=== PATIENT | female | born 1955 | race Caucasian/White ===

== ENCOUNTER → 2016-12-15 | Day surgery (SDC) | payer BC ==
--- NOTE | 2016-12-17 16:41 | WOMENS IMAGING REPORT ---
EXAM DESCRIPTION: U/S BREAST BX; LEFT DIG DX MAMMO NO CHG COMPLETED DATE/TIME: 12/15/2016 3:01 pm; 12/15/2016 2:30 pm REASON FOR STUDY: LEFT BREAST MASS; POST LT BREAST US BIOPSY N63 UNSPECIFIED LUMP IN BREAST COMPARISON: Outside mammograms 11/25/2016, 11/28/2016. Outside left breast ultrasound 11/28/2016. Prior mammograms and breast ultrasound 08/14/2014, 12/20/2013 TECHNIQUE: The procedure was discussed with the patient and the patient agreed to proceed. The patient was scanned and the area of interest in the 12 o'clock position 5 to 6 cm from the nipple of the left breast was localized. This correlates with the area of concern on prior imaging studies . This area was targeted for ultrasound-guided core biopsy. After sterile skin prep and 3.5 mL local lidocaine 1% for skin and deep tissue anesthesia, a 14 gauge coaxial core biopsy needle was used to obtain several cores of tissue from the lesion. Aprons place ment of the guide needle, this lesion disappeared, indicating that it represented a cyst. Under ultr asound guidance, a ribbon clip was placed in the areas sampled. There were no immediate post-procedu re complications. MAMMOGRAM: Post-procedure two view mammogram was acquired in the digital mammogram suite. The clip wa s in the expected location. No significant hematoma. Pathology yields a diagnosis of benign breast tissue with fibrocystic changes. Negative for atypia o r malignancy. Pathology is concordant. LIMITATIONS: None. FINDINGS: Ultrasound guided breast biopsy as described above. POST PROCEDURE MAMMOGRAMS FOR MARKER PLACEMENT: Yes IMPRESSION: ULTRASOUND-GUIDED CORE BIOPSY OF THE LEFT BREAST YIELDS A DIAGNOSIS OF benign breast cys t. BI-RADS 2 Benign findings. COMMENT: COMMUNICATION: Findings were discussed with the patient. She understands this was a benign biopsy and that she can return to yearly screening in November 2017. Patient medication list reviewed: Yes- Quality ID# [id number]:Eligible professional attests to documenting i n the medical record they obtained, updated, or reviewed the patient's current medications. TECHNICAL DOCUMENTATION: JOB ID: [id number] [employer]- All Rights Reserved
== END ==
LOC: RAD 12:30
PROVIDERS: ATTEND Nuclear Medicine
PROC: 0HBU3ZX Excision of Left Breast, Percutaneous Approach, Diagnostic (ICD-10-PCS; principal; 2016-12-15)
DX: N60.12 Diffuse cystic mastopathy of left breast (principal)
CPT/HCPCS: 19083; 88305

== ENCOUNTER 2017-10-06 03:54 | Emergency (ER) | payer SELFPAY ==
[2017-10-06] MEDS ORDERED: ASPIRIN 325 MG TABLET PO ONE (04:32)
[2017-10-06] MEDS ORDERED: ACETAMINOPHEN 325 MG TABLET PO ONE (04:32)
--- NOTE | 2017-10-06 04:44 | ER Document Report ---
ED General - General Chief Complaint: Chest Pain Stated Complaint: POSSIBLE ALLERGIC REACTION Time Seen by Provider: 10/06/17 04:20 Notes: The patient is a 62-year-old female, past medical history Prinzmetal's angina, left bundle branch block, presents with a dull chest heaviness for 3 days. She has had this in the past and has nitro at home, but did not take any nitro. Her last cardiac catheterization was in 2013 and she said it was clean. 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 She was treated for an allergic reaction on her legs after insect bites at the urgent care earlier in the day with prednisone and a cream. Patient is also having a dull headache and took ibuprofen earlier in the night. She denies shortness of breath, nausea, vomiting, throat swelling , back pain, rash or fevers. TRAVEL OUTSIDE OF THE [place] IN LAST 30 DAYS: No - Related Data Allergies/Adverse Reactions: No Known Allergies Allergy (Unverified 06/08/13 03:08) Past Medical History - General Information source: Patient - Social History Smoking Status: Unknown if Ever Smoked Family History: Reviewed & Not Pertinent - Past Medical History Cardiac Medical History: Reports: Hx Coronary Artery Disease, Hx Hypercholesterolemia GI Medical History: Reports: Hx Gastroesophageal Reflux Disease Past Surgical History: Reports: Hx Cardiac Catheterization - x3, Hx Tubal Ligation - Immunizations Immunizations up to date: Yes Hx Diphtheria, Pertussis, Tetanus Vaccination: Yes Review of Systems - Review of Systems Notes: REVIEW OF SYSTEMS: CONSTITUTIONAL: -fevers, -chills EENT: -eye pain, -difficulty swallowing, -nasal congestion CARDIOVASCULAR: +chest pain, -syncope. RESPIRATORY: -cough, -SOB GASTROINTESTINAL: -abdominal pain, -nausea, -vomiting, -diarrhea GENITOURINARY: -dysuria, -hematuria MUSCULOSKELETAL: -back pain, -neck pain SKIN: +urticaria HEMATOLOGIC: -easy bruising or bleeding. LYMPHATIC: -swollen, enlarged glands. NEUROLOGICAL: -altered mental status or loss of consciousness, -headache, - neurologic symptoms PSYCHIATRIC: -anxiety, -depression. ALL OTHER SYSTEMS REVIEWED AND NEGATIVE. Physical Exam - Vital signs Vitals: Temp Pulse Resp BP Pulse Ox 97.8 F 115 H 24 H 152/120 H 97 10/06/17 03:54 10/06/17 03:54 10/06/17 03:54 10/06/17 03:54 10/06/17 03:54 - Notes Notes: PHYSICAL EXAMINATION: GENERAL: Well-appearing, well-nourished and in no acute distress. HEAD: Atraumatic, normocephalic. EYES: Pupils equal round and reactive to light, extraocular movements intact, sclera anicteric, conjunctiva are normal. ENT: nares patent, oropharynx clear without exudates. Moist mucous membranes. NECK: Normal range of motion, supple without lymphadenopathy LUNGS: Breath sounds clear to auscultation bilaterally and equal. No wheezes rales or rhonchi. HEART: Regular rate and rhythm without murmurs ABDOMEN: Soft, nontender, normoactive bowel sounds. No guarding, no rebound. No masses appreciated. EXTREMITIES: Normal range of motion, no pitting or edema. No cyanosis. NEUROLOGICAL: Cranial nerves grossly intact. Normal speech, normal gait. Normal sensory and motor exams. PSYCH: Normal mood, normal affect. SKIN: Warm, Dry, normal turgor, no rashes or lesions noted. Course - Re-evaluation Re-evalutation: Patient's chest pain is chronic in nature and she has had this multiple times in the past. EKG shows her known left bundle branch block without any Scarbossaa criteria to suggest ACS. Troponin is negative. HEART score is 3. Patient takes verapamil for intermittent tachycardia when she walks. When she is at rest, her heart rate will go down to the 80s and blood pressure is 123/ 83. Her headache is benign in nature and she has had this in the past. It is not consistent with meningitis, SAH or ICH at this time. Instructed her to follow-up with her visual training aide in [facility] for further evaluation treatment of her chest pain. - Vital Signs Vital signs: Temp Pulse Resp BP Pulse Ox 97.8 F 108 H 18 146/91 H 100 10/06/17 03:54 10/06/17 04:20 10/06/17 04:20 10/06/17 04:20 10/06/17 04:20 - Laboratory Result Diagrams: 10/06/17 04:35 10/06/17 04:35 Laboratory results interpreted by me: 10/06/17 10/06/17 04:35 04:35 WBC 11.1 H Seg Neutrophils % 86.7 H Lymphocytes % 10.4 L Monocytes % 2.7 L Absolute Neutrophils 9.6 H Sodium 145.4 H Chloride 110 H Glucose 146 H Calcium 10.3 H - Diagnostic Test Radiology reviewed: Image reviewed, Reports reviewed Radiology results interpreted by me: CXR: NAD - EKG Interpretation by Me EKG shows normal: Sinus rhythm, [place], QRS Complexes, ST-T Waves Rate: Tachycardia Additional EKG results interpreted by me: Old LBBB, no Scarbossa criteria Discharge - Discharge Clinical Impression: Urticaria Chest pain Qualifiers: Chest pain type: unspecified Qualified Code(s): R07.9 - Chest pain, unspecified Condition: Stable Additional Instructions: CHEST PAIN OF UNCLEAR CAUSE: The exact cause of your chest pain isn't clear. Fortunately, there is no evidence of a dangerous medical condition. Further testing may be required to find the source of the pain. Most often, we find that this pain is coming from the chest wall -- the muscles or rib joints in the chest. But chest pain can come from the lung and lung lining, the esophagus, the heart valves or heart lining, and even the stomach or gallbladder. Rest. Eat lightly until the pain is gone. We may prescribe medicine for pain and inflammation. You should call the physician immediately if the pain radiates to the shoulder, jaw or arms; if you start to run a fever or develop a cough; or if you develop shortness of breath, or other new or alarming symptoms. NORMAL EXAM AND WORKUP: At this time, your examination and workup show no significant abnormality. No significant abnormal physical findings were noted. All laboratory, EKG, and imaging (x-ray, CT scans, ultrasound) studies that were ordered show no significant abnormality. Although your examination and all studies that were ordered showed no significant abnormal finding, there are no examinations and no studies that are 100% accurate. There is always the possibility that some abnormality could exist and not be detected with physical examination or within the limits and capabilities of laboratory and other studies. You should return or follow up as you were instructed on your visit today for further evaluation if your symptoms do not resolve. CHEST WALL PAIN: Your chest pain may be coming from the chest wall. This is often caused by straining the muscles or joints in the chest during physical activity, direct trauma, coughing, or vigorous vomiting. Persons with arthritis are especially prone to this type of pain, due to inflammation of the cartilage joints near the breast bone. Occasionally, no cause can be found. Rest from strenuous physical activity. This kind of chest pain is usually made worse by movement of the chest. Depending on the symptoms, we may prescribe medicine for pain, muscle relaxation, and antiinflammatory effects. If the pain is new, and seems to be due to muscle strain, cold packs can help. Otherwise, apply gentle warmth to the painful area for 15 minutes every hour or two. You should call contact the doctor immediately if things change. Further evaluation is needed if you develop a fever or cough, if the nature of the pain changes, or if you become short of breath. ANGINA EPISODE: Your physician has diagnosed the pain you experienced as an episode of angina. Angina occurs when a portion of the heart muscle temporarily lacks oxygen. It does not cause any permanent heart damage, but serves as a warning. Hospitalization is not necessary now. Evaluation of your cardiac condition , and medical therapy for angina will be necessary. It's important you be sure to keep all appointments and take medication exactly as prescribed. Angina is usually treated with a type of "nitrate" medication. This is available as ointment, pills, or sublingual (under the tongue) tablets. Depending on your clinical situation, other medications may be added to help control angina. These may include beta blockers or calcium blockers. If episodes of angina are occurring with increased frequency, or if chest pain lasts longer than 15 minutes or does not respond to nitroglycerin, you must seek emergency medical care immediately. ASPIRIN: Aspirin has been shown to have a beneficial effect on blood circulation by reducing the clotting effect of platelets in the blood. These beneficial effects can be achieved by taking just a single baby (81 mg) aspirin a day. It is recommended that any person over the age of forty take a single baby aspirin every day for heart and brain circulation, unless you are allergic to aspirin or have some significant bleeding disorder. It is strongly recommended that people who have proven cardiac or blood circulation disturbances should take a baby aspirin every day. NITRATES: Nitroglycerin and related longer-acting nitrate medications are used to prevent or treat attacks of angina. These medicines dilate blood vessels, decreasing the work of the heart, and improving its supply of oxygen. Many different forms are available, including sublingual tablets (used under the tongue), sprays, skin patches, and long-acting pills. If the particular form of medication you have been given is not working well for you, contact your doctor. Long-acting forms: Take exactly as prescribed. Sudden stopping of medication can provoke increased attacks. Sublingual tabs or spray: A headache will usually occur with use. Sit or lie while waiting for the pain to go away. If angina doesn't respond to three doses (five minutes apart), call for emergency assistance. FOLLOW-UP CARE: If you have been referred to a physician for follow-up care, call the physician s office for an appointment as you were instructed or within the next two days. If you experience worsening or a significant change in your symptoms, notify the physician immediately or return to the Emergency Department at any time for re-evaluation. Forms: Elevated Blood Pressure Referrals: NADEEM ROBERTS MD [Primary Care Provider] - Follow up as needed
[2017-10-06 04:51] LABS: ABSOLUTE LYMPHOCYTES (AUTO) 1.2 10^3/uL (0.5-4.7); ABSOLUTE MONOCYTES (AUTO) 0.3 10^3/uL (0.1-1.4); ABSOLUTE NEUT (AUTO) 9.6 10^3/uL (1.7-8.2); BASOPHILS % (AUTO) 0.2 % (0-2); HEMATOCRIT 40.2 % (36.0-47.0); HEMOGLOBIN 14.1 g/dL (12.0-15.5); LYMPHOCYTES % (AUTO) 10.4 % (13-45); MEAN CORPUSCULAR HEMOGLOBIN 31.4 pg (27.0-33.4); MEAN CORPUSCULAR HGB CONC 35.2 g/dL (32.0-36.0); MEAN CORPUSCULAR VOLUME 89 fl (80-97); MONOCYTES % (AUTO) 2.7 % (3-13); PLATELET COUNT 251 10^3/uL (150-450); RED CELL DISTRIBUTION WIDTH 13.1 % (11.5-14.0); SEGMENTED NEUTROPHILS % (AUTO) 86.7 % (42-78); TOTAL CELLS COUNTED % (AUTO) 100 %; WHITE BLOOD COUNT 11.1 10^3/uL (4.0-10.5)
[2017-10-06 05:07] LABS: ALANINE AMINOTRANSFERASE 52 U/L (9-52); ALBUMIN 4.5 g/dL (3.5-5.0); ALKALINE PHOSPHATASE 99 U/L (38-126); ANION GAP 12 (5-19); ASPARTATE AMINO TRANSFERASE 34 U/L (14-36); BILIRUBIN,DIRECT 0.3 mg/dL (0.0-0.4); BILIRUBIN,TOTAL 0.7 mg/dL (0.2-1.3); BLOOD UREA NITROGEN 17 mg/dL (7-20); CALCIUM 10.3 mg/dL (8.4-10.2); CARBON DIOXIDE 23 mmol/L (22-30); CHLORIDE 110 mmol/L (98-107); CREATINE KINASE 135 U/L (30-135); GLUCOSE 146 mg/dL (75-110); POTASSIUM 4.3 mmol/L (3.6-5.0); SODIUM 145.4 mmol/L (137-145); TOTAL PROTEIN 7.7 g/dL (6.3-8.2)
--- NOTE | 2017-10-06 06:41 | RADIOLOGY REPORT (SQ) ---
EXAM DESCRIPTION: XR CHEST 2 VIEWS COMPLETED DATE/TME: 10/06/2017 04:14 CLINICAL HISTORY: 62 years Female, chest pain COMPARISON: 5.31.18 FINDINGS: Adequate lung volume, clear parenchyma, normal cardiac silhouette, and intact bony thorax. IMPRESSION: No acute cardiopulmonary findings.
[2017-10-06 06:44] VITALS: BP 142/83
--- NOTE | 2017-10-06 07:32 | EKG REPORT ---
SEVERITY:- ABNORMAL ECG - SINUS TACHYCARDIA LEFT BUNDLE BRANCH BLOCK : Confirmed by: Freedom Hirsch MD 06-Oct-2017 07:31:32
== END 2017-10-06 06:20 | disposition home or self-care (01) ==
LOC: ER 03:54
DX: L50.9 Urticaria, unspecified (principal); R07.9 Chest pain, unspecified; I25.10 Atherosclerotic heart disease of native coronary artery without angina pectoris; E78.00 Pure hypercholesterolemia, unspecified; Z98.51 Tubal ligation status
CPT/HCPCS: 36415; 71046; 80053; 82550; 84484; 85025; 93005; 93010; 99285

== ENCOUNTER 2017-10-13 10:06 | Emergency (ER) | payer SELFPAY ==
[2017-10-13] MEDS ORDERED: ASPIRIN 81 MG TABLET, CHEWABLE PO ONE ×2 (10:16→10:40)
[2017-10-13] MEDS ORDERED: NITROGLYCERIN 0.4 MG/TAB 25 TAB/BOTTLE SL PRN (10:38)
--- NOTE | 2017-10-13 10:40 | ER Document Report ---
ED Medical Screen (RME) - General Chief Complaint: Chest Pressure Stated Complaint: CHEST PRESSURE Time Seen by Provider: 10/13/17 10:24 Notes: Patient is a 62-year-old female, past medical history Prinzmetal's angina, known LBBB, presents with usual chest pressure. She was seen in the ER earlier in the week for similar symptoms. Did not take her nitro at home, but did take 162 mg ASA this morning. 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 Has not yet followed up with her tacker elastic band in [place]. PE: RRR. No acute distress. Lungs CTAB. I have greeted and performed a rapid initial assessment of this patient. A comprehensive ED assessment and evaluation of the patient, analysis of test results and completion of the medical decision making process will be conducted by additional ED providers. TRAVEL OUTSIDE OF THE [place] IN LAST 30 DAYS: No - Related Data Allergies/Adverse Reactions: No Known Allergies Allergy (Verified 10/13/17 10:25) Past Medical History - Social History Chew tobacco use (# tins/day): No Drug Abuse: None - Past Medical History Cardiac Medical History: Reports: Hx Coronary Artery Disease, Hx Hypercholesterolemia Renal/ Medical History: Denies: Hx Peritoneal Dialysis GI Medical History: Reports: Hx Gastroesophageal Reflux Disease Past Surgical History: Reports: Hx Cardiac Catheterization - x3, Hx Tubal Ligation - Immunizations Immunizations up to date: Yes Hx Diphtheria, Pertussis, Tetanus Vaccination: Yes Physical Exam - Vital signs Vitals: Temp Pulse Resp BP Pulse Ox 98.0 F 81 20 137/76 H 99 10/13/17 10:21 10/13/17 10:21 10/13/17 10:21 10/13/17 10:21 10/13/17 10:21 Course - Vital Signs Vital signs: Temp Pulse Resp BP Pulse Ox 98.0 F 81 20 137/76 H 99 10/13/17 10:21 10/13/17 10:21 10/13/17 10:21 10/13/17 10:21 10/13/17 10:21 Doctor's Discharge - Discharge Referrals: NADEEM ROBERTS MD [Primary Care Provider] - Follow up as needed
[2017-10-13 11:01] LABS: HEMATOCRIT 40.1 % (36.0-47.0); HEMOGLOBIN 14.2 g/dL (12.0-15.5); MEAN CORPUSCULAR HGB CONC 35.5 g/dL (32.0-36.0); MEAN CORPUSCULAR VOLUME 90 fl (80-97); PLATELET COUNT 251 10^3/uL (150-450); RED BLOOD COUNT 4.45 10^6/uL (3.72-5.28); RED CELL DISTRIBUTION WIDTH 13.2 % (11.5-14.0); WHITE BLOOD COUNT 6.7 10^3/uL (4.0-10.5)
[2017-10-13 11:16] LABS: ALANINE AMINOTRANSFERASE 49 U/L (9-52); ALBUMIN 4.4 g/dL (3.5-5.0); ALKALINE PHOSPHATASE 107 U/L (38-126); ANION GAP 11 (5-19); ASPARTATE AMINO TRANSFERASE 31 U/L (14-36); BILIRUBIN,DIRECT 0.4 mg/dL (0.0-0.4); BILIRUBIN,TOTAL 0.8 mg/dL (0.2-1.3); BLOOD UREA NITROGEN 14 mg/dL (7-20); CALCIUM 9.6 mg/dL (8.4-10.2); CARBON DIOXIDE 27 mmol/L (22-30); CHLORIDE 106 mmol/L (98-107); CREATINE KINASE 81 U/L (30-135); GLUCOSE 96 mg/dL (75-110); POTASSIUM 4.5 mmol/L (3.6-5.0); TOTAL PROTEIN 7.7 g/dL (6.3-8.2)
[2017-10-13 11:30] LABS: ABSOLUTE LYMPHOCYTES# (MANUAL) 2.8 10^3/uL (0.5-4.7); ABSOLUTE MONOCYTES # (MANUAL) 0.6 10^3/uL (0.1-1.4); BASOPHILS % (MANUAL) 0 % (0-2); CREATINE KINASE MB 0.25 ng/mL (<4.55); EOSINOPHILS % (MANUAL) 4 % (0-6); LYMPHOCYTES % (MANUAL) 42 % (13-45); METAMYELOCYTES % (MANUAL) 1 % (0); MONOCYTES % (MANUAL) 9 % (3-13); PLATELET COMMENT ADEQUATE; RBC MORPHOLOGY COMMENT NORMO-CYTIC/CHROMIC; SEGMENTED NEUTROPHILS % (MAN) 44 % (42-78); TOTAL CELLS COUNTED 100; TOXIC GRANULATION SLIGHT
--- NOTE | 2017-10-13 11:31 | ER Document Report ---
ED Cardiac - General Mode of Arrival: Ambulatory Information source: Patient TRAVEL OUTSIDE OF THE [place] IN LAST 30 DAYS: No <MORIS SMITH - Last Filed: 10/13/17 14:21> <LORI SPARROW - Last Filed: 10/13/17 19:25> - General Chief Complaint: Chest Pressure Stated Complaint: CHEST PRESSURE Time Seen by Provider: 10/13/17 10:24 Notes: 62 y.o female with a PMHx of HLD, Prinzmetal's angina and LBBB presents to the ED with chest pressure. Pt describes her discomfort as a pressure and denies any pain to her chest. Pt reports being seen here last week because she was not feeling well and had very high blood pressure which she associates with taking Prednisone last week as prescribed by Urgent Care for chigger bites. 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 She reports feeling this chest pressure today and having an EKG at Dr. Cheatham's office and that he told her to come to the ED. She reports a Cardiac catheterization in 2013 and denies having any stress tests since 2013. Pt reports a family hx of UT in both her mother and father around the age of 60. She denies any hx of DM. 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 Family History: Other - Mother and father both with UT around the age of 60 Patient has suicidal ideation: No Patient has homicidal ideation: No - Past Medical History Cardiac Medical History: Reports: Hx Coronary Artery Disease, Hx Hypercholesterolemia Renal/ Medical History: Denies: Hx Peritoneal Dialysis GI Medical History: Reports: Hx Gastroesophageal Reflux Disease Past Surgical History: Reports: Hx Cardiac Catheterization - x3, Hx Tubal Ligation - Immunizations Immunizations up to date: Yes Hx Diphtheria, Pertussis, Tetanus Vaccination: Yes <MORIS SMITH - Last Filed: 10/13/17 14:21> Review of Systems - Review of Systems Constitutional: See HPI, Other - very high BP last week while taking Prednisone for chigger bites EENT: No symptoms reported Cardiovascular: See HPI, Other - Chest pressure. denies: Chest pain Respiratory: See HPI. denies: Short of breath Gastrointestinal: No symptoms reported Genitourinary: No symptoms reported Female Genitourinary: No symptoms reported Musculoskeletal: No symptoms reported Skin: No symptoms reported Hematologic/Lymphatic: No symptoms reported Neurological/Psychological: No symptoms reported -: Yes All other systems reviewed and negative <MORIS SMITH - Last Filed: 10/13/17 14:21> Physical Exam <MORIS SMITH - Last Filed: 10/13/17 14:21> <LORI SPARROW - Last Filed: 10/13/17 19:25> - Vital signs Vitals: Temp Pulse Resp BP Pulse Ox 98.0 F 81 20 137/76 H 99 10/13/17 10:21 10/13/17 10:21 10/13/17 10:21 10/13/17 10:21 10/13/17 10:21 - Notes Notes: PHYSICAL EXAM GENERAL: Alert, interacts well. No acute distress. HEAD: Normocephalic, atraumatic. EYES: Pupils equal, round, and reactive to light. Extraocular movements intact. ENT: Oral mucosa moist, tongue midline. NECK: Full range of motion. Supple. Trachea midline. LUNGS: Clear to auscultation bilaterally, no wheezes, rales, or rhonchi. No respiratory distress. HEART: Regular rate and rhythm. No murmurs, gallops, or rubs. ABDOMEN: Soft, non-tender. Non-distended. Bowel sounds present in all 4 quadrants. No guarding, rebound, or rigidity. EXTREMITIES: Moves all 4 extremities spontaneously. No edema, radial and dorsalis pedis pulses 2/4 bilaterally. No cyanosis. NEUROLOGICAL: Alert and oriented x3. Normal speech. PSYCH: Normal affect, normal mood. SKIN: Warm, dry, normal turgor. No rashes or lesions noted. (MORIS SMITH) Course - Laboratory Result Diagrams: 10/13/17 10:50 10/13/17 10:50 <MORIS SMITH - Last Filed: 10/13/17 14:21> - Laboratory Result Diagrams: 10/13/17 10:50 10/13/17 10:50 <LORI SPARROW - Last Filed: 10/13/17 19:25> - Re-evaluation Re-evalutation: 10/13/17 15:34 CBC unremarkable, CMP unremarkable, cardiac enzymes negative 2, EKG is stable 2, shows persistent left bundle branch block. Negative sgarbossa criteria, unchanged from prior left bundle branch block on old EKGs. Discussed case with Dr. Malhotra who is the recreational therapy aide carbon accountant at this time. Agrees with plan to discharge this patient to home with recommendations to start Imdur mononitrate 30 mg daily and to follow-up with cardiology in the next 1-2 weeks. Agrees there is no indication at this time for admission or cardiac catheterization. 10/13/17 19:25 Dr. Cheatham was not consulted as he is out of the country in [place] at this time. (LORI SPARROW) - Vital Signs Vital signs: Temp Pulse Resp BP Pulse Ox 98.0 F 81 14 131/76 H 97 10/13/17 10:21 10/13/17 10:21 10/13/17 15:57 10/13/17 15:57 10/13/17 15:57 - Laboratory Laboratory results interpreted by me: 10/13/17 10:50 Metamyelocytes % 1 H - EKG Interpretation by Me Additional EKG results interpreted by me: 10/13/17 15:35 Initial EKG shows sinus rhythm at a rate of 79, left bundle branch block, no sgarbossa's criteria, no ectopic beats per my interpretation. Repeat EKG shows sinus rhythm rate of 64, continued left bundle branch block, negative sgarbossa criteria, no ectopy per my interpretation. (LORI SPARROW) Discharge <MORIS SMITH - Last Filed: 10/13/17 14:21> <LORI SPARROW - Last Filed: 10/13/17 19:25> - Discharge Clinical Impression: Stable angina, Prinzmetal's angina Condition: Stable Disposition: HOME, SELF-CARE Additional Instructions: Take to your chest pain appears to be consistent with your usual Prinzmetal's angina. Your EKG shows a left bundle branch block that is the same as you have had in the past. There is no evidence of heart attack today. I discussed the case with Dr. Malhotra who is the recreational therapy aide carbon accountant today will Dr. Cheatham is out of the country, he recommended starting Imdur 30 mg once a day and also recommended that you take your nitroglycerin 1 tablet every 5 minutes up to 3 times to improve your pain. If your pain does not improve after 3 tablets of nitroglycerin you should come to the emergency department. Prescriptions: Isosorbide Mononitrate [Imdur 30 mg Tablet.er] 30 mg PO DAILY #30 tab.er.24h Nitroglycerin 0.4 mg SL PRN PRN #30 tab.subl PRN Reason: For Chest Pain Referrals: NADEEM CHEATHAM MD [Primary Care Provider] - Follow up as needed Scribe Attestation: 10/13/17 19:25 I personally performed the services described in the documentation, reviewed and edited the documentation which was dictated to the scribe in my presence, and it accurately records my words and actions. (LORI SPARROW) Scribe Documentation - Scribe Written by Zita:: Zita Slaughter 10/13/17 1132 acting as scribe for :: Laura <MORIS SMITH - Last Filed: 10/13/17 14:21>
[2017-10-13 11:32] LABS: TROPONIN I < 0.012 ng/mL
--- NOTE | 2017-10-13 11:36 | RADIOLOGY REPORT (SQ) ---
EXAM DESCRIPTION: CHEST SINGLE VIEW COMPLETED DATE/TIME: 10/13/2017 11:25 am REASON FOR STUDY: chest pain COMPARISON: Chest films 09/04/2015, 10/06/2017 CT chest 09/25/2015 EXAM PARAMETERS: NUMBER OF VIEWS: One view. TECHNIQUE: Single frontal radiographic view of the chest acquired. RADIATION DOSE: NA LIMITATIONS: None. FINDINGS: LUNGS AND PLEURA: No opacities, masses or pneumothorax. No pleural effusion. MEDIASTINUM AND HILAR STRUCTURES: No masses. Contour normal. HEART AND VASCULAR STRUCTURES: Heart normal in size. Normal vasculature. BONES: No acute findings. HARDWARE: None in the chest. OTHER: No other significant finding. IMPRESSION: NO ACUTE RADIOGRAPHIC FINDING IN THE CHEST. TECHNICAL DOCUMENTATION: JOB ID: [id number] [employer]- All Rights Reserved Reading location - IP/workstation name: [email or web address]
[2017-10-13] MEDS ORDERED: ACETAMINOPHEN 325 MG TABLET PO ONE (12:11)
[2017-10-13 16:06] VITALS: BP 131/76
--- NOTE | 2017-10-13 20:47 | EKG REPORT ---
SEVERITY:- ABNORMAL ECG - SINUS RHYTHM LBBB : Confirmed by: Shu Malhotra MD 13-Oct-2017 20:46:41
--- NOTE | 2017-10-13 20:47 | EKG REPORT ---
SEVERITY:- ABNORMAL ECG - SINUS RHYTHM LEFT BUNDLE BRANCH BLOCK : Confirmed by: Shu Malhotra MD 13-Oct-2017 20:46:46
== END 2017-10-13 16:06 | disposition home or self-care (01) ==
LOC: ER 10:06
DX: I20.1 Angina pectoris with documented spasm (principal); R07.89 Other chest pain; I44.7 Left bundle-branch block, unspecified; I25.10 Atherosclerotic heart disease of native coronary artery without angina pectoris; Z82.49 Family history of ischemic heart disease and other diseases of the circulatory system
CPT/HCPCS: 36415; 71045; 80053; 82550; 82553; 84484; 85025; 93005; 93010; 99285